=== PATIENT | female | born 1990 | race Hispanic/Latino ===

== ENCOUNTER 2017-10-09 13:29 | Emergency (ER) | payer BC ==
[~2017-10-09] VITALS: Ht 162.6 cm; Wt 70.0 kg
[2017-10-09] MEDS ORDERED: MORPHINE SULFATE 2 MG/ML SYR IV STA (14:20)
[2017-10-09] MEDS ORDERED: ONDANSETRON HCL INJ 2 MG/ML VIAL IV STA (14:20)
[2017-10-09] MEDS ORDERED: FAMOTIDINE 20 MG/2 ML VIAL IV STA (14:25)
[2017-10-09] MEDS ORDERED: MAGNESIUM/ALUMINUM/SIMETHICONE 30 ML UDC PO ONE (14:30)
[2017-10-09] MEDS ORDERED: LIDOCAINE VISC 2% SOLN 15 ML UDC PO ONE (14:30)
[2017-10-09] MEDS ORDERED: SODIUM CHLORIDE 0.9% 1000ML 1,000 ML IV SCH (14:30)
[2017-10-09] MEDS ORDERED: IOPAMIDOL 300MG/ML 100 ML INFUS..BTL IV ONE (16:45)
== END 2017-10-09 17:15 | disposition home or self-care (01) ==
LOC: FSED 13:29
DX: R10.13 Epigastric pain (principal)
CPT/HCPCS: 74176; 80048; 80076; 81003; 81025; 85025; 99284; J2270; J2405; Q9967